=== PATIENT | female | born 1935 | race Caucasian/White ===

== ENCOUNTER → 2017-02-25 | Outpatient (CLI) | payer MEDICARE, OTHER ==
[~2017-02-25] MED LIST: AMIO200T44 PO; LEVO100T4 PO; NIFE60 PO; PRAV20TA4 PO
== END | disposition home or self-care (01) ==
LOC: RADMN 16:07
PROVIDERS: ATTEND Legal Medicine
DX: J69.0 Pneumonitis due to inhalation of food and vomit (principal); I51.7 Cardiomegaly; I70.0 Atherosclerosis of aorta
CPT/HCPCS: 71020